=== PATIENT | male | born 1950 | race Caucasian/White ===

== ENCOUNTER 2016-08-13 06:19 | Emergency (ER) | payer BC ==
[~2016-08-13] VITALS: Ht 182.9 cm; Wt 81.6 kg
[2016-08-13] MEDS ORDERED: methylPREDNISolone SOD SUCC 125 MG/2ML VIAL ONE (06:25)
[2016-08-13] MEDS ORDERED: FAMOTIDINE/PF INJ 20 MG/2 ML VIAL IV ONE ×2 (06:25→07:00)
[2016-08-13] MEDS ORDERED: diphenhydrAMINE HCL 50 MG/ML VIAL ONE (06:25)
[2016-08-13] MEDS ORDERED: methylPREDNISolone SOD SUCC 125 MG/2ML VIAL IV ONE (07:00)
[2016-08-13] MEDS ORDERED: diphenhydrAMINE HCL 50 MG/ML VIAL IV ONE (07:00)
[2016-08-13 08:14] VITALS: BP 118/59
== END 2016-08-13 08:15 | disposition home or self-care (01) ==
LOC: ER 06:21
DX: T78.40XA Allergy, unspecified, initial encounter (principal); L50.9 Urticaria, unspecified; Y92.89 Other specified places as the place of occurrence of the external cause; Y93.89 Activity, other specified; Y99.8 Other external cause status
CPT/HCPCS: A4606; J1200; J2930; J3490; Z7610

== ENCOUNTER 2018-06-01 23:54 | Inpatient (IN) | payer BC ==
[~2018-06-01] VITALS: Ht 182.9 cm; Wt 90.7 kg
--- NOTE | 2018-06-02 00:05 | NUR ---
PT BIBRA COMPLAINING OF CHEST PAIN X8 HOURS. PT DESCRIBES PAIN PRESSURE AND STATES IT RADIATES TO BACK. PT RECEIVED 2 SPRAY NITRO AND ASPIRIN 162MG EN ROUTE WITH RELIEF OF SYMPTOMS. PT DENIES SOB, N/V/D, HEADACHE. PT IS AAOX4. RESPIRATIONS EVEN AND UNLABORED. SKIN WARM AND INTACT. VITAL SIGNS STABLE. PT PLACED IN GOWN AND ON MONITOR, WILL CONTINUE TO MONITOR
[2018-06-02] MEDS ORDERED: ASPIRIN 81 MG TAB.CHEW ONE (00:08)
[2018-06-02 00:19] LABS: BASOPHILS % (AUTO) 0.4 % (0.0-2.0); EOSINOPHILS % (AUTO) 5.3 % (0.0-6.0); HEMATOCRIT 44 % (39-51); HEMOGLOBIN 14.9 g/dL (13.5-17.5); LYMPHOCYTES % (AUTO) 35.9 % (20.0-44.0); MEAN CORPUSCULAR HGB CONC 34 g/dl (31.0-36.0); MEAN CORPUSCULAR VOLUME 95 fL (80-96); MONOCYTES % (AUTO) 9.3 % (2.0-12.0); NEUTROPHILS % (AUTO) 49.1 % (43.0-81.0); PLATELET COUNT (AUTO) 300 /CMM (150-450); RED BLOOD CELL COUNT(AUTO) 4.65 MIL/uL (4.5-6.0); WHITE BLOOD COUNT (AUTO) 5.6 K/uL (4.3-11.0)
[2018-06-02 00:20] LABS: MONOCYTES # (AUTO) 0.5 /CMM (0.1-1.30); NEUTROPHILS # (AUTO) 2.7 /CMM (1.8-8.9)
[2018-06-02 00:29] LABS: CALCIUM, SERUM 9.1 mg/dL (8.5-10.1); CARBON DIOXIDE 31 mmol/L (21-32); CHLORIDE 104 mmol/L (98-107); CREATININE 1.2 mg/dL (0.6-1.3); GLUCOSE 91 mg/dL (74-106); SODIUM SERUM 142 mmol/L (136-145); UREA NITROGEN, BLOOD 18 mg/dL (7-18)
[2018-06-02] MEDS ORDERED: ASPIRIN 81 MG TAB.CHEW PO ONE (00:30)
--- NOTE | 2018-06-02 01:00 | NUR ---
PT RESTING COMFORTABLY IN BED. VITAL SIGNS STABLE. WILL CONTINUE TO MONITOR
[2018-06-02 02:30] VITALS: BP 122/78
--- NOTE | 2018-06-02 02:40 | NUR ---
PT TRANSFERRED PER [facility] PROTOCOL
--- NOTE | 2018-06-02 02:45 | NUR ---
TELE/RN OPENING NOTES PT RECEIVED TO UNIT FROM ER VIA [facility]. A/OX4. ON ROOM AIR, BREATHING EVEN AND UNLABORED. DENIES SOB, N/V AND CHEST PAIN/PRESSURE AT THIS TIME. IV TO RAC PATENT AND INTACT. ORIENTED PT TO ROOM AND CALL LIGHT. BELONGINGS LIST COMPLETED. PLACED ON LIABILITY ANALYST SHOWING SR 74. BED IN LOW/LOCKED POSITION WITH CALL LIGHT IN REACH AND BILATERAL UPPER SIDE RAILS IN PLACE. WILL CONTINUE TO MONITOR
[2018-06-02] MEDS ORDERED: ONDANSETRON HCL/PF 4 MG/2 ML VIAL IVP PRN (03:00)
[2018-06-02] MEDS ORDERED: ZOLPIDEM TARTRATE 5 MG TABLET PO PRN (03:00)
[2018-06-02] MEDS ORDERED: MAG HYDROX/AL HYDROX/SIMETH 30 ML UDC PO PRN (03:00)
[2018-06-02] MEDS ORDERED: Z GUARD REMEDY 2 OZ OINT TP PRN (03:00)
[2018-06-02] MEDS ORDERED: MAGNESIUM HYDROXIDE 30 ML UDC PO PRN (03:00)
[2018-06-02] MEDS ORDERED: ACETAMINOPHEN 325 MG TABLET PO PRN (03:00)
[2018-06-02] MEDS ORDERED: MORPHINE SULFATE INJ 2 MG/ML DISP.SYRIN IV PRN (03:00)
[2018-06-02] MEDS ORDERED: HYDROCODONE/APAP 5/325MG 1 EACH TABLET PO PRN (03:00)
[2018-06-02] MEDS ORDERED: BUSP10TA3 PO (03:30)
[2018-06-02] MEDS ORDERED: LINA72CA PO (03:30)
[2018-06-02] MEDS ORDERED: CLIN300C11 PO (03:30)
[2018-06-02] MEDS ORDERED: POLY17PO4 PO (03:30)
[2018-06-02] MEDS ORDERED: BIFI4CAP PO (03:30)
[2018-06-02] MEDS ORDERED: ALPR0.25 PO (03:42)
--- NOTE | 2018-06-02 03:50 | NUR ---
TELE/RN NOTES PT STATES HE MISSED TWO DOSES OF HIS CLINDAMYCIN, LAST DOSE BEING 06/01 @ 1200. REQUESTING IF HE CAN RESUME TODAY AT 0600. ALSO FEELING ANXIOUS AND REQUESTING FOR XANAX. MD MCFADDEN NOTIFIED, WITH ORDERS FOR CLINDAMYCIN 300MG PO Q6H STARTING TODAY AT 0600 AND XANAX 0.5MG PO ONCE NOW AND THEN QHS PRN. ORDERS NOTED AND READBACK PER PROTOCOL. WILL CARRY OUT ORDERED.
--- NOTE | 2018-06-02 03:51 | NUR ---
TELE/RN NOTES MD MCFADDEN ASKED TO REVIEW MEDRECON.
[2018-06-02] MEDS ORDERED: IV NS 0.9% 1,000 ML IV PRN (04:00)
[2018-06-02] MEDS ORDERED: ALPRAZOLAM 0.25 MG TABLET PO SCH (04:00)
[2018-06-02] MEDS ORDERED: ALPRAZOLAM 0.25 MG TABLET PO PRN (04:30)
--- NOTE | 2018-06-02 05:01 | NUR ---
TELE/RN NOTES PT REQUESTING FOR ONLY 0.25MG AFTER PACKAGING WAS OPENED. ADMINISTERED 0.25MG AND WASTED OTHER 0.25MG WITH ANOTHER RN. Addendum: 06/02/18 at 0801 by EDI BARTHOLOMEW RN SPOKE TO PHARMACY AND AWARE OF INCIDENT AND WASTE IN OMNICELL. PT STATED THAT 0.25MG XANAX TABLET WAS EFFECTIVE FOR HIM. WOULD LIKE TO CONTINUE THAT DOSE. DAY SHIFT RN AWARE AND WILL ASK MD TO CHANGE DOSE FROM 0.5MG TO 0.25MG
[2018-06-02] MEDS: CLINDAMYCIN HCL 150 MG CAPSULE PO SCH ×3 (05:45→17:48)
--- NOTE | 2018-06-02 07:00 | NUR ---
TELE/RN OPENING NOTES PT AWAKE, HOB ELEVATED. ON ROOM AIR, BREATHING EVEN AND UNLABORED. SR 70'S. DENIES SOB, N/V. NO CP AT THIS TIME. IV TO RAC PATENT AND INTACT RUNNING IVF ORDERED. STATES 0.25MG XANAX TABLET WAS EFFECTIVE. WOULD LIKE TO CONTINUE THAT DOSE. MD TO CHANGE ORDER. PHARMACY STATES ALIGN AND LINZESS IS NOT STOCKED IN XI, FAMILY MEMBER TO BRING HOME MEDS. DAY SHIFT RN AWARE. KEPT NPO FOR CARDIO CONSULT. NO SIGNIFICANT CHANGES OVERNIGHT. ALL NEEDS MET. BED IN LOW/LOCKED POSITION WITH CALL LIGHT IN REACH. SIDE RAILS UP X2. ENDORSED TO DAY SHIFT RN ELIZABETH. Addendum: 06/02/18 at 0807 by EDI BARTHOLOMEW RN CLOSING NOTES
--- NOTE | 2018-06-02 07:15 | NUR ---
MSRN, PT TELE SR 66. PT NPO FOR CARDIOLOGY RV. PT RECEIVED A&0X3, TOLERATING ROOM AIR WITHOUT DISTRESS AND DENIES PAIN OR DISCOMFORT AT THIS TIME. PT WITH IVC FLUIDS NOT RUNNING, IVC SALINE FLUSH PATENT BUT CONTINUES TO ALARM, IV APPEARS POSITIONAL. L HAND WITH DRESSING CLEAN AND INTACT. PT REPORTS SIGNIFICANT ANXIETY RELIEF FROM PRN, PT BRIEFED ON POC AND IS WITHOUT CONCERN OR COMPLAINT AT THIS TIME. 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 WILL CONTINUE POC.
[2018-06-02 08:16] VITALS: BP 109/69
[2018-06-02] MEDS ORDERED: IOHEXOL-350 100 ML VIAL IV ONE ×2 (08:22→10:18)
[2018-06-02] MEDS ORDERED: IV NS 0.9% 0 ML IV ONE (08:23)
[2018-06-02] MEDS ORDERED: LINA145C PO (08:24)
[2018-06-02] MEDS ORDERED: DICL100G34 TD (08:24)
[2018-06-02] MEDS ORDERED: DICL50TA7 PO (08:24)
[2018-06-02] MEDS ORDERED: ZOLP5TAB2 PO (08:24)
[2018-06-02] MEDS ORDERED: ENOXAPARIN SODIUM 40 MG/0.4 ML DISP.SYRIN SQ SCH (09:00)
[2018-06-02] MEDS ORDERED: ALPRAZOLAM 0.25 MG TABLET PO ONE (09:00)
[2018-06-02] MEDS ORDERED: ASPIRIN 81 MG TAB.CHEW PO SCH (09:00)
[2018-06-02] MEDS ORDERED: CT SWABBABLE VALVE TRANS SET 1 EA INFUS.SET MC ONE (10:18)
[2018-06-02] MEDS ORDERED: METOPROLOL TARTRATE INJ 5 MG/5 ML AMPUL ONE (10:18)
[2018-06-02] MEDS ORDERED: IV NS 0.9% 250 ML IV ONE (10:18)
--- NOTE | 2018-06-02 10:59 | NUR ---
PT TO [facility]
--- NOTE | 2018-06-02 11:01 | NUR ---
WOUND CONSULT PATIENT CURRENTLY OFF UNIT, UNABLE SEE PATIENT AT THIS TIME , WILL DEFER TO SURGICAL HAND
--- NOTE | 2018-06-02 13:00 | NUR ---
PT RETURNED FROM [facility]. VITALS CHARTED, PT DENIES FURTHER NEEDS AT THIS TIME.
[2018-06-02] MEDS: METOPROLOL TARTRATE 50 MG TABLET PO SCH ×2 (13:21→17:49)
[2018-06-02 13:22] VITALS: BP 97/67
[2018-06-02] MEDS ORDERED: MUPIROCIN OINT 2% 22 GM TUBE TP SCH (14:00)
--- NOTE | 2018-06-02 14:49 | NUR ---
WOUND CARE COMPLETED PER RX.
[2018-06-02 16:20] VITALS: BP 109/72
--- NOTE | 2018-06-02 18:30 | NUR ---
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 PT PREPARED FOR D/C PER MD QUIÑONEZ. PT TOLERATING ROOM AIR AND DENIES PAIN, PT IVC REMOVED AND NAD AT SITE. ALL WOUND CARE COMPLETED. PT BRIEFED ON SO D/C PACKET, EDUCATION AND POC, PT VERBALIZING UNDERSTANDING, RESOURCES AND INTENT TO FOLLOW POC. PT PROVIDED [facility] 3DIMAGE ON CD. PT WITH ALL BELONGINGS AND DOCUMENT SIGNED. ALL DAY NURSE DUTIES ATTENDED TO AND PT AND ARE WITHOUT CONCERN OR COMPLAINT AND GRATEFUL FOR CARE. AMB EXIT WITH FOR TRANSPORT.
[2018-06-02] MEDS ORDERED: ATORVASTATIN 40 MG TABLET PO SCH (22:00)
== END 2018-06-02 18:30 | disposition home or self-care (01) | DRG 206 ==
LOC: ER 23:56 → TELE 06-02 01:40
PROVIDERS: ADMIT Family Medicine; ATTEND Family Medicine
DX: M94.0 Chondrocostal junction syndrome [Tietze] (principal); K58.9 Irritable bowel syndrome, unspecified; F43.10 Post-traumatic stress disorder, unspecified; F41.9 Anxiety disorder, unspecified; S61.402A Unspecified open wound of left hand, initial encounter
CPT/HCPCS: 36415; 71045-TC; 75574; 80048-TC; 84484-TC; 85025-TC; 85730-TC; 87081-TC; 93307-TC; A4606; A6402; G0378; J1650; J3490; J7030; J7050; Q9967; Z7610